=== PATIENT | female | born 1960 | race Caucasian/White ===

== ENCOUNTER 2024-01-14 19:12 | Emergency (ER) | payer BC, SELFPAY ==
[2024-01-14 19:14] VITALS: BP 164/107
[2024-01-14 19:56] VITALS: BP 140/92
[2024-01-14 20:13] LABS: % Basophils 0.5 % (0-2); % Eosinophils 3.5 % (0-6); % Immature Granulocytes 0.3 % (0-0.5); % Lymphocytes 32.5 % (20.5-51.1); % Monocytes 8.9 % (1.7-9.3); % Neutrophils 54.3 % (42.2-75.2); Absolute Eosinophils 0.2 10^3/uL (0-0.7); Absolute Lymphocytes 2.2 10^3/uL (1.2-3.4); Absolute Monocytes 0.6 10^3/uL (0.1-0.6); Absolute Neutrophils 3.6 10^3/uL (1.4-6.5); Hemoglobin 12.8 g/dL (12.0-16.0); Mean Corp Hgb Conc. 33.7 g/dL (33.0-37.0); Mean Corpuscular Hgb 28.6 pg (27.0-31.0); Mean Platelet Volume 8.5 fL (7.4-10.4); Nucleated Red Blood Cells % 0 %; Platelet Count 305 10^3/uL (130-400); Red Blood Cell Count 4.47 10^6/uL (4.20-5.40); Red Cell Dist. Width 13.7 % (11.5-14.5); White Blood Cell Count 6.7 10^3/uL (4.8-10.8)
--- NOTE | 2024-01-14 20:22 | ED.GENMED ---
History of Present Illness
<Nancie Tena PA-C - Last Filed: 01/19/24 08:18>
General
Chief Complaint: Abdominal Symptoms
Source: patient
Exam Limitations: none
Time Seen by Provider: 01/14/24 19:56
Nursing documentation reviewed up to this point in time: agreed with
Travel History
Have you had any contact with someone who has COVID-19?: No
Do you have any symptoms of coronavirus? Fever > 100 degrees, chills, cough, shortness of breath, sore throat, loss of taste or smell, muscle aches, or headache?: No
History of Present Illness
History of Present Illness:
63 Y/O F with h/o osteoporosis
took 1st dose of ibandronate 150 mg on 01/10
says that later that day she started feeling nauseated, fatigued, and generally not well
pt says she also got some epigastric discomfort, felt bloated, and constipated
she has gone on like this for 3 days and just is very worried 'something is wrong.'
she had BM today but it wasn't much
she is on a stool softener daily Citrucel and has an internal hemorrhoid so she doesn't like to strain to have BM
she was worried that this is side effect of medication
she has never had abdominal surgery
no fever, cough, chills, sob, cp, vomiting, bloody or black stool
pt also had left sided neck pain 5 days ago after sleeping on her neck pillow
it is slowly getting better
no trauma, no chiropractor, no vertigo, no headache, no vision changes
Past History
<Nancie Tena PA-C - Last Filed: 01/19/24 08:18>
Past History
ED Past Medical History: None
ED Past Surgical History: None
Social History
Tobacco: Non-smoker
Alcohol: None
Drug: None
Personal:
Living: with family
Review of Systems
<Nancie Tena PA-C - Last Filed: 01/19/24 08:18>
Review of Systems
Allergies reviewed?: Yes
All Other Systems: Not applicable
Phy Exam
<Nancie Tena PA-C - Last Filed: 01/19/24 08:18>
Physical Exam
Physical Exam:
GENERAL: Alert , in no apparent distress
EYE: pupils equal and reactive
NECK: Supple, full rom, nontender,
ENT: o/p clr, mmm.
CARDIAC: Regular rate and rhythm .
LUNGS: Clear breath sounds bilaterally, no acute respiratory distress, no wheezes/rales/rhonchi
ABDOMEN: Soft, without focal tenderness, no r/g, no cvat, normal bowel sounds
NEUROLOGICAL: Alert and oriented, no focal neuro deficits
SKIN: Warm and dry, skin intact.
MUSCULOSKELETAL: No edema, well perfused. neg toya's sign
PSYCH: Normal and appropriate interaction.
Course
<Nancie Tena PA-C - Last Filed: 01/19/24 08:18>
Orders/Labs/Results
Orders:
Orders
01/14/24 20:05
CBC/With Diff [Complete Blood Count/With Diff] Urgent
CMP [Comprehensive Metabolic Panel] Urgent
01/14/24 20:50
Electrocardiogram (*1) Urgent
Reason for Study: Abdominal Pain
EKG- Treatment ONCE
Famotidine [Pepcid] 20 mg IV NOW STA
Ondansetron Injectable [Zofran] 4 mg IV NOW STA
Obstruct Series W/PA Chest [CR Obstruct Series W/pa Chest] Urgent
Comment:
Reason For Exam: constipation, abdominal bloating
US Abdomen Complete/Upper Urgent
Comment:
Reason For Exam: upper abd pain, anusea
01/14/24 22:32
COVID-19 Antigen Urgent
Source: Nasal Swab
01/14/24 22:37
Urinalysis Reflex To Culture Urgent
Date Specimen was Collected: 01/14/24
Time Specimen was Collected: 22:34
Urine Microscopic Reflex Cult Urgent
Urine Culture Urgent
FERMIN Source: U
Specimen Description:
Date Specimen was Collected: 01/14/24
Time Specimen was Collected: 22:34
Abnormal Lab Results
01/14/24 01/14/24
20:05 22:37
Sodium 133 L mmol/L
(135-145)
Glucose 108 H mg/dl
(70-99)
AST 48 H U/L
(14-36)
Urine Ketones Trace A
(Negative)
Leukocyte Esterase Rfl 1+ A
(Negative)
Urine Bacteria (Reflex) Few A
(Negative)
01/14/24 20:05
01/14/24 20:05
Vital Signs
Initial and Last Documented VS:
Initial Vital Signs
Temp Pulse Resp BP Pulse Ox
97.7 F 80 18 164/107 100
01/14/24 19:14 01/14/24 19:14 01/14/24 19:14 01/14/24 19:14 01/14/24 19:14
Last Documented Vital Signs
Temp Pulse Resp BP Pulse Ox
97.9 F 66 20 114/80 98
01/15/24 00:02 01/15/24 00:02 01/15/24 00:02 01/15/24 00:02 01/15/24 00:02
<Yusra Betancourt PA-C - Last Filed: 01/15/24 00:52>
Orders/Labs/Results
Orders:
Orders
01/14/24 20:05
CBC/With Diff [Complete Blood Count/With Diff] Urgent
CMP [Comprehensive Metabolic Panel] Urgent
01/14/24 20:50
Electrocardiogram (*1) Urgent
Reason for Study: Abdominal Pain
EKG- Treatment ONCE
Famotidine [Pepcid] 20 mg IV NOW STA
Ondansetron Injectable [Zofran] 4 mg IV NOW STA
Obstruct Series W/PA Chest [CR Obstruct Series W/pa Chest] Urgent
Comment:
Reason For Exam: constipation, abdominal bloating
US Abdomen Complete/Upper Urgent
Comment:
Reason For Exam: upper abd pain, anusea
01/14/24 22:32
COVID-19 Antigen Urgent
Source: Nasal Swab
01/14/24 22:37
Urinalysis Reflex To Culture Urgent
Date Specimen was Collected: 01/14/24
Time Specimen was Collected: 22:34
Urine Microscopic Reflex Cult Urgent
Urine Culture Urgent
FERMIN Source: U
Specimen Description:
Date Specimen was Collected: 01/14/24
Time Specimen was Collected: 22:34
Abnormal Lab Results
01/14/24 01/14/24
20:05 22:37
Sodium 133 L mmol/L
(135-145)
Glucose 108 H mg/dl
(70-99)
AST 48 H U/L
(14-36)
Urine Ketones Trace A
(Negative)
Leukocyte Esterase Rfl 1+ A
(Negative)
Urine Bacteria (Reflex) Few A
(Negative)
01/14/24 20:05
01/14/24 20:05
Vital Signs
Initial and Last Documented VS:
Initial Vital Signs
Temp Pulse Resp BP Pulse Ox
97.7 F 80 18 164/107 100
01/14/24 19:14 01/14/24 19:14 01/14/24 19:14 01/14/24 19:14 01/14/24 19:14
Last Documented Vital Signs
Temp Pulse Resp BP Pulse Ox
97.9 F 66 20 114/80 98
01/15/24 00:02 01/15/24 00:02 01/15/24 00:02 01/15/24 00:02 01/15/24 00:02
<Nancie Tena PA-C - Last Filed: 01/19/24 08:18>
MDM/Problems Addressed
Differential Diagnosis Includes:
gastritis, gallstones, medication adverse effects, GI virus
MDM/Problems Addressed:
63 y/o F with newbisphosphonate med and then got GI symptoms, lack of appetite, nausea, upper abd discomfort (mild), constipation, bloating, fatigue
has not had fever, vomiting, bloody or black stool
no previous surgeries
well appearing
anxious
nontender abdomen, neg moreno's sign but minimal epigastric discomfort
no bloating appreciated
will check labs, US, and xray, ekg
pepcid and zofran in ED
suspect mild gastritis/side effects from new med
signed out to yusra betancourt PAC at 2200 pending imaging
<Yusra Betancourt PA-C - Last Filed: 01/15/24 00:52>
*Critical Care Note
Total Time (30-74mins, 75-104mins- exclusive of procedures): Not Applicable
<Yusra Betancourt PA-C - Last Filed: 01/15/24 00:52>
Update Note
Update Note:
23:37 US without acute findings such as cholecystitis. Radiographs demonstrate some stool, but no evidence of severe constipation or obstruction. Patient reevaluated. She reports she feels significantly improved after receiving famotidine and
ondansetron. Patient made aware of US and radiograph results. Patient is safe for discharge to home with prescriptions for famotidine and ondansetron. Patient advised to follow up with her doctor. Patient educated on return precautions, she
expressed understanding of the plan and agreed.
ED Attending Note
<Nancie Tena PA-C - Last Filed: 01/19/24 08:18>
-
Portions of this chart may have been created with voice recognition software.� Occasional wrong word or��sound alike� substitutions may have occurred due to the inherent limitations of voice recognition software.
Discharge Plan
Departure
Patient Disposition: Home (Routine Discharge)
Date of Disposition: 01/14/24
Time of Disposition: 23:38
Patient with high blood pressure during this ER visit?: No
Condition: Good
Covid-19: Not Applicable
Discharge Problem:
Abdominal pain, Nausea
Instructions: Abdominal Pain
Prescriptions:
New
famotidine 20 mg tablet
20 mg PO BID 7 Days Qty: 14 0RF
ondansetron 4 mg tablet,disintegrating
4 mg PO TIDPRN PRN (Reason: nausea/vomiting) 3 Days Qty: 7 0RF
No Action
cetirizine 10 MG tablet
10 mg PO DAILY
cyanocobalamin (vitamin B-12) 1,000 MCG tablet
1,000 mcg PO DAILY
ascorbic acid (vitamin C) [Vitamin C] 500 MG tablet
500 mg PO DAILY
ibuprofen 600 MG tablet
600 mg PO PRN PRN (Reason: pain)
Referrals:
Please follow up, with your primary care provider [Other] - Follow up in 2-3 days
Activity Restrictions/Additional Instructions:
You were seen in the emergency department for evaluation of upper abdominal pain, nausea, decreased appetite, generalized weakness, after taking a new medication. While you were in the emergency department, you had lab work, an ultrasound of your
right upper abdomen, and x-rays of your abdomen. No dangerous abnormalities were found. You felt better after receiving medication. You are safe for discharge to home. Please follow-up with your doctor to ensure improvement in your symptoms.
Please return to the emergency department for increasing or severe abdominal pain, persistent vomiting, or for any other worsening or concerning symptoms.
Interventions
Interventions:
*Risk Screen - Suicide Last Done: 01/14/24 19:14
*General Assessment Last Done: 01/14/24 19:14
*Neglect/Abuse Screening Last Done: 01/14/24 19:14
ED- Fall Risk Assessment Last Done: 01/14/24 20:12
*ED COVID-19 Vaccine History Last Done: 01/14/24 23:29
*Nursing Disposition Last Done: 01/15/24 00:02
OB-[facility] Assessment Last Done: 01/14/24 20:12
Discharge Date and Time
Discharge Date/Time: 01/15/24 00:03
Print Language: ALBANIAN
[2024-01-14 20:27] LABS: ALT (SGPT) 25 U/L (0-35); AST (SGOT) 48 U/L (14-36); Albumin 4.4 g/dl (3.5-5.0); Alkaline Phosphatase 113 U/L (38-126); Blood Urea Nitrogen 13 mg/dl (7-17); Calcium 8.5 mg/dl (8.4-10.2); Carbon Dioxide 26 mmol/L (22-30); Chloride 99 mmol/L (98-107); Glucose 108 mg/dl (70-99); Potassium 3.9 mmol/L (3.5-5.1); Sodium 133 mmol/L (135-145); Total Bilirubin 0.5 mg/dl (0.2-1.3); Total Protein 7.6 g/dl (6.3-8.2); eGFR > 60.00
[2024-01-14 21:00] VITALS: BP 123/85
[2024-01-14] MEDS: ZOFRAN 4 MG IV (21:21)
[2024-01-14] MEDS: PEPCID 20 MG IV (21:21)
[2024-01-14 22:40] VITALS: BP 126/95
[2024-01-14 22:43] VITALS: BP 115/80
[2024-01-14 22:47] LABS: Urine Albumin Negative (Neg - Trace); Urine Bilirubin Negative (Negative); Urine Character Clear (Clear); Urine Color Straw; Urine Glucose Negative (Negative); Urine Ketone Trace (Negative); Urine Leukocyte 1+ (Negative); Urine Nitrite Negative (Negative); Urine Occult Blood Negative (Negative); Urine Specific Gravity 1.005 (<1.030); Urine Urobilinogen Negative (Neg - 1+)
[2024-01-14 22:54] LABS: Urine Red Blood Cell 0-2 /HPF (0-2)
[2024-01-14 22:55] LABS: Urine Bacteria Few (Negative); Urine Mucus Few
[2024-01-14 22:59] LABS: COVID-19 Antigen Negative (Negative)
[2024-01-14 23:00] VITALS: BP 114/80
[2024-01-14 23:28] VITALS: BMI 25.3
[2024-01-15 00:02] VITALS: BP 114/80
== END 2024-01-15 00:03 | disposition home or self-care (01) ==
LOC: EMR 19:12
PROVIDERS: Physician Assistant; Physician Assistant Medical; EMERGENCY PHYSICIAN Emergency Medicine; FAMILY PHYSICIAN Internal Medicine
DX: R10.10 Upper abdominal pain, unspecified (principal); R11.0 Nausea; R53.83 Other fatigue; K59.00 Constipation, unspecified; R53.1 Weakness; M54.2 Cervicalgia; R14.0 Abdominal distension (gaseous); R63.0 Anorexia; K64.8 Other hemorrhoids; M81.0 Age-related osteoporosis without current pathological fracture; Z88.1 Allergy status to other antibiotic agents; Z88.2 Allergy status to sulfonamides; Z11.52 Encounter for screening for COVID-19
CPT/HCPCS: 99284; 96374; 96375; 74022; 76700; 80053; 81003; 81015; 85025; 87086; 87811; 93005